=== PATIENT | male | born 2000 | race Caucasian/White ===

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

== ENCOUNTER → 2023-05-26 | Emergency (ER) | payer OTHER ==
[~2023-05-26] MED LIST: CYCLOBENZAPRINE 10 MG TAB ONE; KETOROLAC 30 MG/ML INJ ONE; dexAMETHasone 10 MG/ML VIAL ONE
--- NOTE | 2023-05-26 18:23 | ER ---
Nurse's Notes [facility] Name: Parker Noland Jr Age: 22 yrs Sex: Male : 2000 Arrival Date: 05/26/2023 Time: 16:20 Bed DX4 Private MD: Diagnosis: Low back pain Presentation: 05/26 17:03 Chief complaint: Patient states: Pt states he bent over and felt a pop in his lower tl4 back at approx 1400 today. Pt c/o lower back pain now. Pt states now his vision is blurred. Pt states this is the 3rd episode of this type. Coronavirus screen: Vaccine status: Patient reports being unvaccinated. At this time, the client does not indicate any symptoms associated with coronavirus-19. Ebola Screen: Patient negative for fever greater than or equal to 101.5 degrees Fahrenheit, and additional compatible Ebola Virus Disease symptoms Patient denies exposure to infectious person. Patient denies travel to an Ebola-affected area in the 21 days before illness onset. No symptoms or risks identified at this time. Initial Sepsis Screen: Does the patient meet any 2 criteria? No. Patient's initial sepsis screen is negative. Does the patient have a suspected source of infection? No. Patient's initial sepsis screen is negative. Risk Assessment: Do you want to hurt yourself or someone else? Patient reports no desire to harm self or others. Onset of symptoms was May 26, 2023 at 14:00. 17:03 Method Of Arrival: Wheelchair tl4 17:03 Acuity: MERARY 4 tl4 Triage Assessment: 17:09 General: Appears in no apparent distress. Behavior is calm, cooperative. Pain: tl4 Complains of pain in lower back. Musculoskeletal: Circulation, motion, and sensation intact. Capillary refill < 3 seconds, Range of motion: intact in all extremities. Historical: - Allergies: 17:08 No Known Allergies; tl4 - PMHx: 17:08 adhd; Asthma; Bipolar disorder; tl4 - PSHx: 17:08 Appendectomy; tl4 - Immunization history:: Adult Immunizations unknown. - Social history:: Smoking status: Reported history of juuling and/or vaping. Screenin:16 [facility] ED Fall Risk Assessment (Adult) History of falling in the last 3 months, tl4 including since admission No falls in past 3 months (0 pts) Confusion or Disorientation No (0 pts) Intoxicated or Sedated No (0 pts) Impaired Gait No (0 pts) Mobility Assist Device Used No (0 pt) Altered Elimination No (0 pt) Score/Fall Risk Level 0 - 2 = Low Risk Oriented to surroundings, Maintained a safe environment, Educated pt \T\ family on fall prevention, incl call for assistance when getting out of bed. Abuse screen: Denies threats or abuse. Denies injuries from another. Nutritional screening: No deficits noted. Tuberculosis screening: No symptoms or risk factors identified. Assessment: 18:15 Reassessment: No changes from previously documented assessment. Patient and/or family tl4 updated on plan of care and expected duration. Pain level reassessed. Patient is alert, oriented x 3, equal unlabored respirations, skin warm/dry/pink. Neuro: No deficits noted. Vital Signs: 17:03 BP 127 / 86; Pulse 86; Resp 16; Temp 98.3(TE); Pulse Ox 100% ; Pain 10/10; tl4 17:03 Pain Scale: Adult tl4 ED Course: 16:21 Patient arrived in ED. rg4 16:56 Valentina Mohan FNP-C is [facility]. kb 16:56 Goldy aM MD is Attending Physician. kb 17:08 Triage completed. tl4 17:09 Arm band placed on left wrist. tl4 18:16 Patient has correct armband on for positive identification. Bed in low position. Adult tl4 w/ patient. Provided Education on: ED process. 18:16 No provider procedures requiring assistance completed. Patient did not have IV access tl4 during this emergency room visit. Administered Medications: 18:15 Drug: Cyclobenzaprine PO 10 mg PO once Route: PO; tl4 18:15 Drug: Dexamethasone IM 10 mg IM once Route: IM; Site: left ventrogluteal; tl4 18:15 Drug: Ketorolac IM 30 mg IM once Route: IM; Site: left ventrogluteal; tl4 Medication: 18:15 VIS not applicable for this client. tl4 Outcome: 18:23 Discharge ordered by . kb 18:37 Patient left the ED. hb Signatures: Valentina Mohan FNP-C FNP-Ckb Baxter, Heather, RN RN hb Garcia, Rubi rg4 LogMichael [place] tl4
--- NOTE | 2023-05-26 18:23 | EDPHYS ---
Physician Documentation [facility] Name: Parker Noland Jr Age: 22 yrs Sex: Male : 2000 Arrival Date: 05/26/2023 Time: 16:20 Bed DX4 Private MD: ED Physician Goldy Ma HPI: 05/26 18:21 This 22 yrs old Male presents to ER via Wheelchair with complaints of Back Pain. kb 18:21 Patient is a 22-year-old male who presents for lower back pain that is worse on the kb left side. States he twisted and felt a pop causing pain at 2 PM. States this is the third time this has happened over the last few months. States he normally comes in get some medications for the pain and the pain completely resolves after a few days on its own. Denies radiation of pain, numbness, tingling, incontinence.. Historical: - Allergies: 17:08 No Known Allergies; tl4 - PMHx: 17:08 adhd; Asthma; Bipolar disorder; tl4 - PSHx: 17:08 Appendectomy; tl4 - Immunization history:: Adult Immunizations unknown. - Social history:: Smoking status: Reported history of juuling and/or vaping. ROS: 18:20 Constitutional: Negative for fever, chills, and weight loss, kb 18:20 Back: Positive for pain at rest, pain with movement, of the low back area, 18:20 All other systems are negative, Exam: 18:20 Constitutional: This is a well developed, well nourished patient who is awake, alert, kb and in no acute distress. Head/Face: Normocephalic, atraumatic. ENT: Moist Mucous membranes Cardiovascular: Regular rate Respiratory: Respirations even and unlabored. No increased work of breathing. Talking in full sentences Abdomen/GI: Soft, non-tender. No distention Skin: Warm, dry with normal turgor. Normal color. MS/ Extremity: Pulses equal, no cyanosis. Neurovascular intact. Full, normal range of motion. Neuro: Awake and alert, GCS 15, oriented to person, place, time, and situation. Moves all extremities. Normal gait. 18:20 Back: pain, that is moderate, of the low back area, ROM is painful, CVA tenderness, is absent, Vital Signs: 17:03 BP 127 / 86; Pulse 86; Resp 16; Temp 98.3(TE); Pulse Ox 100% ; Pain 10/10; tl4 17:03 Pain Scale: Adult tl4 MDM: 16:58 Patient medically screened. kb 18:22 Differential diagnosis: strain, sciatica, contusion, Herniated disc. Data reviewed: kb vital signs, nurses notes. Test considered but Not performed: X-ray: x-ray and CT scan considered, but pt had no injury. Recommended follow up for MRI . Counseling: I had a detailed discussion with the patient and/or guardian regarding the historical points, exam findings, and any diagnostic results supporting the discharge/admit diagnosis, the need for outpatient follow up, a family practitioner, to return to the emergency department if symptoms worsen or persist or if there are any questions or concerns that arise at home. Administered Medications: 18:15 Drug: Cyclobenzaprine PO 10 mg PO once Route: PO; tl4 18:15 Drug: Dexamethasone IM 10 mg IM once Route: IM; Site: left ventrogluteal; tl4 18:15 Drug: Ketorolac IM 30 mg IM once Route: IM; Site: left ventrogluteal; tl4 Disposition: 05/27 08:57 Co-signature as Attending Physician, Goldy Ma MD I reviewed the patient's care rn provided by the Advanced Practice Provider and agree with the diagnosis and treatment plan. Disposition Summary: 05/26/23 18:23 Discharge Ordered Notes: Location: Home kb Condition: Stable kb Diagnosis - Low back pain kb Followup: kb - With: Emergency Department - When: As needed - Reason: Worsening of condition Followup: kb - With: Private Physician - When: 2 - 3 days - Reason: Recheck today's complaints, Continuance of care, Re-evaluation by your physician Discharge Instructions: - Discharge Summary Sheet kb - Musculoskeletal Pain kb Forms: - Medication Reconciliation Form kb - Thank You Letter kb - Antibiotic Education kb - Prescription Opioid Use kb - Patient Portal Instructions kb - Leadership Thank You Letter kb Prescriptions: - Prednisone 20 mg Oral Tablet - take 1 tablet ORAL route once daily for 5 days; 5 tablet; Refills: 0, Product kb Selection Permitted - Cyclobenzaprine 10 mg Oral tablet - take 1 tablet ORAL route every 8 hours As needed; 21 tablet; Refills: 0, kb Product Selection Permitted - Diclofenac Sodium 75 mg Oral tablet, delayed release (enteric coated) - take 1 tablet ORAL route 2 times per day As needed; 30 tablet; Refills: 0, kb Product Selection Permitted Signatures: Valentina Mohan FNP-C FNP-Goldy Ortiz MD MD rn Logclaudia, Michael tl4
[2023-05-26 18:58] VITALS: BP 127/86; TEMP 98.3; O2SAT 100
== END ==
LOC: ER 16:20 → MERGE 16:20
DX: M54.50 Low back pain, unspecified (principal)
CPT/HCPCS: 96372; 99284; J1100